=== PATIENT | female | born 1985 | race Two or more races ===

== ENCOUNTER → 2025-03-02 | Outpatient (CLI) | payer BC, SELFPAY ==
[2025-03-02 17:37] LABS: Alanine Aminotransferase 19 U/L (10-49); Aspartate Amino Transferase 18 U/L (0-34); Beta HCG,Quantitative 1 mIU/mL (<5.0); Triglycerides 275 mg/dL (30-150)
== END | disposition home or self-care (01) ==
LOC: COPL 16:19
PROVIDERS: PCP Nurse Practitioner Family; Referring Provider Physician Assistant; Visit Provider Physician Assistant
DX: L70.0 Acne vulgaris (principal)
CPT/HCPCS: 36415; 84450; 84460; 84478; 84702